=== PATIENT | female | born 1990 ===

== ENCOUNTER 2019-07-14 09:15 | Day surgery (SDC) | payer OTHER ==
[~2019-07-14] VITALS: Ht 162.6 cm; Wt 81.1 kg
[~2019-07-14 09:15] MED LIST: BIRTH CONTROL; LINZESS145 MCG PO
--- NOTE | 2019-07-14 10:34 | NUR ---
07/14/19 1034 MISHA CLIFTON 1 IV IN HAND BY YVROSE VEIN BLEW 2 IV ATTEMPT VEIN ROLLED 3 IV ATTEMPT BY RN SUCCESSFUL IN RAC
--- NOTE | 2019-07-14 11:27 | NUR ---
07/14/19 1127 Jeni Gallo PROCEDURE START TIME DELAY DUE TO DR BARRON TALKING WITH PREVIOUS PATIENT.
== END 2019-07-14 11:52 | disposition home or self-care (01) ==
LOC: ORSCSDS 09:15
PROVIDERS: Internal Medicine Gastroenterology
PROC: 0DJD8ZZ Inspection of Lower Intestinal Tract, Via Natural or Artificial Opening Endoscopic (ICD-10-PCS; principal; 2019-07-14 10:30)
DX: R19.4 Change in bowel habit (principal); K57.30 Diverticulosis of large intestine without perforation or abscess without bleeding; K64.8 Other hemorrhoids; E66.9 Obesity, unspecified; Z68.32 Body mass index [BMI] 32.0-32.9, adult; Z79.3 Long term (current) use of hormonal contraceptives
CPT/HCPCS: J2704; J7120